=== PATIENT | female | born 1930 | race Caucasian/White ===

== ENCOUNTER 2021-09-13 12:05 | Outpatient (CLI) | payer MEDICARE, OTHER | END 2021-09-13 12:06 | disposition home or self-care (01) | LOC: CSHCT 12:05 | PROVIDERS: ATTEND Internal Medicine Cardiovascular Disease | DX: Z95.818 Presence of other cardiac implants and grafts (principal); I48.21 Permanent atrial fibrillation; Z79.01 Long term (current) use of anticoagulants; R29.6 Repeated falls | CPT/HCPCS: 71275; 82565 ==